=== PATIENT | male | born 1985 | race Caucasian/White ===

== ENCOUNTER 2023-03-25 15:58 | Emergency (ER) | payer SELFPAY ==
[2023-03-25 16:06] VITALS: BP 151/98; PULSE 78; RESP 18; TEMP 98.3; BMI 32.3
[2023-03-25] MEDS ORDERED: LIDOCAINE HCL 2% (50ML VIAL) SQ ONE (17:01)
[2023-03-25] MEDS ORDERED: LIDOCAINE HCL 2% (20ML MULTI-DOSE VIAL) ONE ×2 (17:02→17:07)
[2023-03-25] MEDS ORDERED: TETANUS AND DIPHTHERIA TOXOID 0.5 ML DISP.SYRIN IM ONE (18:52)
[2023-03-25] MEDS ORDERED: DIPHTH,PERTUSS(ACELL),TET 0.5 ML DISP.SYRIN IM ONE ×2 (19:02→19:03)
== END 2023-03-25 19:06 | disposition home or self-care (01) ==
LOC: JERFT 15:58
PROC: 0HQGXZZ Repair Left Hand Skin, External Approach (ICD-10-PCS; principal; 2023-03-25)
PROC: 3E0234Z Introduction of Serum, Toxoid and Vaccine into Muscle, Percutaneous Approach (ICD-10-PCS; 2023-03-25)
DX: S61.311A Laceration without foreign body of left index finger with damage to nail, initial encounter (principal); W26.0XXA Contact with knife, initial encounter; Y92.008 Other place in unspecified non-institutional (private) residence as the place of occurrence of the external cause
CPT/HCPCS: 90715; 99283-25

== ENCOUNTER 2023-03-28 17:22 | Emergency (ER) | payer SELFPAY ==
[2023-03-28 17:27] VITALS: BP 127/82; PULSE 76; RESP 18; TEMP 97.5; BMI 32.3
== END 2023-03-28 20:08 | disposition home or self-care (01) ==
LOC: JERFT 17:22
DX: Z48.00 Encounter for change or removal of nonsurgical wound dressing (principal)
CPT/HCPCS: 99281-25